=== PATIENT | female | born 1950 | race Hispanic/Latino ===

== ENCOUNTER 2021-04-09 11:26 | Emergency (ER) | payer OTHER, MEDICARE ==
[~2021-04-09] VITALS: Ht 149.9 cm; Wt 81.2 kg
[~2021-04-09 11:26] MED LIST: AMLO-258 PO; ASPI-1197 PO; ATOR10TA69 PO; ENAL20TA18 PO; HYDR12.530 PO; ISOS30TA92 PO; LEVO500T2 PO; METF-444 PO; METO-409 PO
[2021-04-09 11:45] VITALS: BP 133/49
[2021-04-09] MEDS ORDERED: HYDROCODONE/ACETAMINOPHEN 5/325 MG TAB PO SCH (13:00)
[2021-04-09] MEDS ORDERED: HYDROCODONE/ACETAMINOPHEN 5/325 MG TAB ONE (13:05)
[2021-04-09 16:02] VITALS: BP 113/54
== END 2021-04-09 17:05 | disposition home or self-care (01) ==
LOC: EDH 11:26
DX: S70.02XA Contusion of left hip, initial encounter (principal); E11.9 Type 2 diabetes mellitus without complications; I10 Essential (primary) hypertension; E78.00 Pure hypercholesterolemia, unspecified; Z79.82 Long term (current) use of aspirin; Z79.899 Other long term (current) drug therapy; Z79.84 Long term (current) use of oral hypoglycemic drugs; Z90.710 Acquired absence of both cervix and uterus; W18.39XA Other fall on same level, initial encounter; Y93.89 Activity, other specified; Y92.89 Other specified places as the place of occurrence of the external cause; Y99.8 Other external cause status
CPT/HCPCS: 73502

== ENCOUNTER → 2023-06-11 | Outpatient (CLI) | payer OTHER, MEDICARE ==
[~2023-06-11] MED LIST changes: +ENAL-91 PO; -ENAL20TA18 PO
[2023-06-11 12:51] LABS: T4 (THYROXINE) 7.3 ug/dL (4.7-13.3); THYROID STIMULATING HORMONE 1.51 uIU/mL (0.36-3.74)
== END | disposition home or self-care (01) ==
LOC: LAB 10:43
PROVIDERS: ATTEND Physician Assistant
DX: I10 Essential (primary) hypertension (principal); I48.20 Chronic atrial fibrillation, unspecified
CPT/HCPCS: 36415; 84436; 84443; 84479

== ENCOUNTER → 2023-08-26 | Outpatient (CLI) | payer OTHER, MEDICARE | END | disposition home or self-care (01) | LOC: SHCH 15:19 | PROVIDERS: ATTEND Internal Medicine Cardiovascular Disease | DX: R00.1 Bradycardia, unspecified (principal) | CPT/HCPCS: 93306 ==

== ENCOUNTER → 2025-08-15 | Outpatient (CLI) | payer OTHER, MEDICAID ==
[2025-08-15] MEDS: REGADENOSON 0.4 MG/5 ML PF SYG IVP ONE (13:43)
--- NOTE | 2025-08-15 16:03 | HMCSR ---
APPROVED REPORT Height: 4 ft 11in Weight: 158 lbs TEST INDICATIONS Congenital Heart Disease The imaging protocol used to acquire images was Rest Tc-99m/stress Tc-99m 1 day Consent: The procedure was explained and understood by the patient. Informerd consent was witnessed by Ana M Gallegos RN First, low dose rest was performed then high dose stress. RESTING DATA: The resting ekg shows: NSR Rest SPECT myocardial perfusion imaging was performed in supine position minutes following the intravenous injection of 11 mCi of Tc-99 Sestamibi. Time of rest injection: 12:01: Date: 08/15/2025 PHARMACOLOGIC STRESS: Pharmacologic stress test was performed by injecting regadenoson 0.4 mg IV push followed by the intravenous injection of 27 mCi of Tc-99 Sestamibi. Time of stress injection: 13:32: Date: 08/15/2025 Heart Rate at time of stress injection: 50 bpm. Gated Stress SPECT was performed 60 minutes after stress injection. The images were gated to evaluate regional wall motion and calculate left ventricular ejection fraction. STRESS DETAILS Reason for Termination: Infusion complete Stress Symptoms: Headache Max HR Achieved: 66 bpm % of APMHR Achieved: 54 Max Blood Pressure: 179/54 mmHg Stress ECG: NSR Study quality was good. Lung uptake was Normal. Artifact: No artifact IMPRESSION Normal pharmacologic nuclear stress test. Conclusion Normal perfusion TID 0.97 LVEF 66%
== END | disposition home or self-care (01) ==
LOC: RAH 11:24
PROVIDERS: ATTEND Internal Medicine Cardiovascular Disease
DX: I25.119 Atherosclerotic heart disease of native coronary artery with unspecified angina pectoris (principal); I50.32 Chronic diastolic (congestive) heart failure
CPT/HCPCS: 78452; 93017; J2785; A9500 ×2